=== PATIENT | male | born 1985 | race Two or more races ===

== ENCOUNTER 2022-03-02 14:32 | Emergency (ER) | payer MEDICAID ==
[~2022-03-02] VITALS: Ht 165.1 cm; Wt 90.9 kg
[2022-03-02] MEDS ORDERED: INDO50CA96 PO (15:25)
[2022-03-02] MEDS ORDERED: ketorolac trometh. 30mg/ml inj. IM ONE (15:25)
== END 2022-03-02 15:39 | disposition home or self-care (01) ==
LOC: ER 14:33
DX: M10.9 Gout, unspecified (principal); Z72.89 Other problems related to lifestyle
CPT/HCPCS: 73660; 96372; 99283; J1885